=== PATIENT | female | born 1995 | race African-American/Black ===

== ENCOUNTER 2017-05-16 21:55 | Emergency (ER) | payer BC ==
[~2017-05-16] VITALS: Ht 162.6 cm; Wt 57.2 kg
[2017-05-16] MEDS ORDERED: MULTTAB58 PO (22:28)
[2017-05-16] MEDS ORDERED: BCPILLS PO (22:28)
[2017-05-16 22:29] VITALS: TEMP 36.4; O2SAT 99; Ht 162.6 cm; Wt 57.2 kg
[2017-05-16 23:13] LABS: BASO % 0.3 %; BASO ABS # 0.03 K/uL (0-0.2); EOS % 0.5 %; EOS ABS # 0.05 K/uL (0-0.5); HEMATOCRIT 39.5 % (37-47); HEMOGLOBIN 13.5 g/dL (12.0-16.0); IG# 0.02 K/uL (0.00-0.02); LYMPH % 38.6 %; LYMPH ABS # 3.56 K/uL (1.2-3.4); MEAN CELL VOLUME 88.6 fL (80-100); MEAN CORPUSCULAR HEMOGLOBIN 30.3 pg (25-34); MEAN CORPUSCULAR HGB CONC 34.2 g/dl (32-36); MEAN PLATELET VOLUME 12.6 fL (7.4-10.4); MONO % 6.9 %; MONO ABS # 0.64 K/uL (0.11-0.59); NEUT % 53.5 %; NEUT ABS # 4.92 K/uL (1.4-6.5); PLATELET COUNT 202 K/uL (130-400); RED CELL DISTRIBUTION WIDTH CV 12.9 % (11.5-14.5); RED CELL DISTRIBUTION WIDTH SD 42.1 fL (36.4-46.3); WHITE BLOOD COUNT 9.22 K/uL (4.8-10.8)
[2017-05-16 23:44] LABS: CALCIUM 9.3 mg/dl (8.5-10.1); CREATININE 0.76 mg/dl (0.60-1.20); POTASSIUM 3.9 mmol/L (3.5-5.1)
[2017-05-17 00:11] VITALS: BP 127/79; PULSE 85; O2SAT 99
--- NOTE | 2017-05-17 00:13 | EMERGENCY ROOM VISIT NOTE ---
History Report prepared by Jessica: Neymar Davis Under the Supervision of: Dr. Mainor Nascimento M.D. First contact with patient: 22:07 Chief Complaint: CARBON MONOXIDE EXPOSURE Stated Complaint: CO2 History of Present Illness The patient is a 22 year old female who presents to the Emergency Room with complaints of an episode of carbon monoxide exposure occurring today. The patient states that the furnace in her apartment was malfunctioning today. She notes that the alarm began to go off between 0530 and 0930. She reports that she called the tongue and groove machine operator number for the apartment building, but was told that the beeping was due to a low battery. The patient states that she was in her apartment for the duration of the alarm beeping. Per EMS, the carbon monoxide level reached 350 ppm inside the apartment building. The patient complains of an anxious feeling, headache, chest heaviness, and occasional SOB. She notes that her headache began today when she woke up at 0530. She reports that she has been experiencing occasional SOB, which she attributed to her asthma. She denies any chance of . The patient states that she has stopped smoking cigarettes in December. She notes that she has a family history of clots. She is on control pills. Source of History: patient Onset: today Position: other (global) Symptom Intensity: 350 ppm Quality: other (carbon monoxide exposure) Timing: other (an episode) Associated Symptoms: + headache, + SOB (occasional) Note: She complains of an anxious feeling and chest tightness. Review of Systems See HPI for pertinent positives & negatives. A total of 10 systems reviewed and were otherwise negative. Past Medical & Surgical Medical Problems: (1) Asthma Family History Blood clots Social History Smoking Status: Former Smoker Marital Status: single Housing Status: lives with roommate Occupation Status: student Current/Historical Medications Scheduled Control Pills ( Control Pills), 1 TAB PO DAILY Multiple Vitamin (Multivitamin), 1 TAB PO DAILY Allergies Coded Allergies: [place] (Verified Allergy, Unknown, Unknown, 05/16/17) Physical Exam Vital Signs Date Time Temp Pulse Resp B/P (MAP) Pulse Ox O2 Delivery O2 Flow Rate FiO2 05/16/17 22:45 94 05/16/17 22:29 99 Room Air 05/16/17 22:29 99 Nebulizer 15.0 05/16/17 22:29 36.4 80 20 108/84 99 Room Air Physical Exam Constitutional: Vital signs reviewed. Eyes: Pupils are equal round reactive to light. Conjunctiva are noninjected. ENT: Pharynx is clear without erythema or exudate. Mucous membranes are moist. Neck supple without meningeal signs. Respiratory: Clear to auscultation bilaterally. Breath sounds are equal bilaterally. Cardiovascular: Regular rate and rhythm. No rubs or gallops. GI: Soft, nondistended and nontender. Bowel sounds are present. Musculoskeletal: No peripheral edema. No lower extremity tenderness. Integumentary: No cyanosis. Neurological: The patient is awake and alert. No focal deficits. Psychiatric: Anxious. Medical Decision & Procedures ER Provider Diagnostic Interpretation: Chest x-ray per my interpretation shows no acute cardiopulmonary process. No pneumonia. Laboratory Results 05/16/17 22:56 Red Blood Count 4.46, Mean Corpuscular Volume 88.6, Mean Corpuscular Hemoglobin 30.3, Mean Corpuscular Hemoglobin Concent 34.2, Mean Platelet Volume 12.6, Neutrophils (%) (Auto) 53.5, Lymphocytes (%) (Auto) 38.6, Monocytes (%) (Auto) 6.9, Eosinophils (%) (Auto) 0.5, Basophils (%) (Auto) 0.3, Neutrophils # (Auto) 4.92, Lymphocytes # (Auto) 3.56, Monocytes # (Auto) 0.64, Eosinophils # (Auto) 0.05, Basophils # (Auto) 0.03 05/16/17 22:56 Test 05/16/17 22:09 05/16/17 22:56 05/16/17 23:02 White Blood Count 9.22 K/uL (4.8-10.8) Red Blood Count 4.46 M/uL (4.2-5.4) Hemoglobin 13.5 g/dL (12.0-16.0) Hematocrit 39.5 % (37-47) Mean Corpuscular Volume 88.6 fL (80-100) Mean Corpuscular Hemoglobin 30.3 pg (25-34) Mean Corpuscular Hemoglobin Concent 34.2 g/dl (32-36) Platelet Count 202 K/uL (130-400) Mean Platelet Volume 12.6 fL (7.4-10.4) Neutrophils (%) (Auto) 53.5 % Lymphocytes (%) (Auto) 38.6 % Monocytes (%) (Auto) 6.9 % Eosinophils (%) (Auto) 0.5 % Basophils (%) (Auto) 0.3 % Neutrophils # (Auto) 4.92 K/uL (1.4-6.5) Lymphocytes # (Auto) 3.56 K/uL (1.2-3.4) Monocytes # (Auto) 0.64 K/uL (0.11-0.59) Eosinophils # (Auto) 0.05 K/uL (0-0.5) Basophils # (Auto) 0.03 K/uL (0-0.2) RDW Standard Deviation 42.1 fL (36.4-46.3) RDW Coefficient of Variation 12.9 % (11.5-14.5) Immature Granulocyte % (Auto) 0.2 % Immature Granulocyte # (Auto) 0.02 K/uL (0.00-0.02) Carboxyhemoglobin 4.4 % THgb Anion Gap 8.0 mmol/L (3-11) Est Creatinine Clear Calc Drug Dose 100.3 ml/min Estimated GFR () 129.1 Estimated GFR (Non- 111.3 BUN/Creatinine Ratio 15.4 (10-20) Calcium Level 9.3 mg/dl (8.5-10.1) Bedside D-Dimer 140 ng/mlFEU (0-450) Bedside Troponin I < 0.030 ng/ml (0-0.045) Laboratory results as reviewed by me. ECG Indication: chest pain Rate (beats per minute): 78 Rhythm: sinus rhythm Findings: PAC, no acute ischemic change ED Course 220: The patient was evaluated in room A9. A complete history and physical exam was performed. 2302: I reevaluated the patient. She is feeling better and no longer has any chest pain. 2349: I reevaluated and updated the patient. I spoke to her about her test results. 2351: Upon reevaluation, the patient appeared to have improvement of her symptoms. I discussed darien's findings with her. She verbalized agreement of the treatment plan. The patient was discharged home. Medical Decision This is a 22-year-old female who presents with chest pain. Differential diagnosis includes carbon monoxide exposure, anxiety, panic attack, pulmonary embolism, pleurisy. I did perform a limited focused review of portions of the patient's old chart on the electronic medical record. The patient has had no prior visits to this hospital. I did evaluate the patient as noted above. IV access was established. The patient was placed on a continuous cardiac surgeon. The patient was placed on a nonrebreather mask with 15 L of oxygen. Urine test was negative. I did order and personally review the patient's 12-lead EKG and chest x-ray as described above. I did order and review the patient's blood work as noted in the electronic medical record. Her carboxyhemoglobin was 4.4. Her d-dimer and troponin are both negative. I did discuss the test results with the patient. She is asymptomatic at this time. I did recommend close follow up with [facility]. She does have somewhat to sleep tonight while the furnace is fixed. She was discharged in good condition. Blood Pressure Screening Patient's blood pressure: Normal blood pressure Blood pressure disposition: Did not require urgent referral Impression Primary Impression: Exposure to carbon monoxide Additional Impression: Acute chest pain Scribe Attestation The scribe's documentation has been prepared under my direct and personally reviewed by me in its entirety. I confirm that the note above accurately reflects all work, treatment, procedures, and medical decision making performed by me. Departure Information Dispostion Home / Self-Care Forms HOME CARE DOCUMENTATION FORM, IMPORTANT VISIT INFORMATION Patient Instructions My [facility] Additional Instructions You have been examined and treated today on an emergency basis only. This is not a substitute for, or an effort to provide, complete comprehensive medical care. It is impossible to recognize and treat all injuries or illnesses in a single emergency department visit. It is therefore important that you follow up closely with [facility]. Call as soon as possible for an appointment. Return for worsening symptoms or if you develop fever, vomiting, difficulty breathing or any other concerning symptoms. Problem Qualifiers
--- NOTE | 2017-05-17 06:40 | DIAGNOSTIC IMAGING REPORT ---
CHEST ONE VIEW PORTABLE CLINICAL HISTORY: eval for pna dyspnea COMPARISON STUDY: No previous studies for comparison. FINDINGS: The bones soft tissues and hemidiaphragms are normal. The cardiomediastinal silhouette is normal. The lungs are clear. The pulmonary vasculature is normal. IMPRESSION: Negative chest. The above report was generated using voice recognition software. It may contain grammatical, syntax or spelling errors. Electronically signed by: Hilario Orellana M.D. 05/17/2017 6:38 AM Dictated Date/Time: 05/17/2017 6:37 AM
== END 2017-05-17 00:12 | disposition home or self-care (01) ==
LOC: C.EDA 22:00
DX: Z77.29 Contact with and (suspected) exposure to other hazardous substances (principal); R07.9 Chest pain, unspecified; J45.909 Unspecified asthma, uncomplicated; Z87.891 Personal history of nicotine dependence; Z82.49 Family history of ischemic heart disease and other diseases of the circulatory system